=== PATIENT | female | born 2000 | race Caucasian/White ===

== ENCOUNTER 2020-10-30 11:18 | Outpatient (RCR) | payer BC, SELFPAY ==
[2013-11-25 17:33] VITALS: BMI 18.3
== END 2020-12-04 23:59 ==
LOC: IMMUN 11:18
PROVIDERS: Referring Provider Family Medicine; Visit Provider Family Medicine
DX: Z23 Encounter for immunization (principal)
CPT/HCPCS: 0001A; 91300